=== PATIENT | female | born 1985 | race Caucasian/White ===

== ENCOUNTER 2017-05-18 08:24 | Emergency (ER) | payer OTHER ==
[~2017-05-18] VITALS: Ht 165.1 cm; Wt 104.9 kg
[~2017-05-18 08:24] MED LIST: PEN-VEE K,VEET500 MG PO; TRAMADOL HCL50 MG PO; ULTRAM50 MG PO
[2017-05-18 08:57] LABS: APPEARANCE CLOUDY ((CLEAR)); BILIRUBIN NEGATIVE; BLOOD SMALL; COLOR YELLOW ((YELLOW)); GLUCOSE (STRIP) NEGATIVE; KETONES 20; LEUKOCYTES SMALL; NITRITE NEGATIVE; PROTEIN (STRIP) 30; SPECIFIC GRAVITY 1.019 (1.000-1.030); UROBILINOGEN 0.2 MG/DL (0.2-1.0)
[2017-05-18 09:05] LABS: HEMATOCRIT 47.2 % (36.0-46.0); HEMOGLOBIN 16.5 G/DL (11.9-15.5); PLATELET COUNT 346 K/uL (156-360); RBC DIS.WIDTH-CV 13.2 % (11.8-14.6); RBC DIS.WIDTH-SD 49.4 % (39-53); RED BLOOD COUNT 4.72 M/uL (3.80-5.20); WHITE BLOOD COUNT 19.1 K/uL (4.1-10.2)
[2017-05-18 09:13] LABS: RED BLOOD CELLS 0-5 /HPF (0-5)
[2017-05-18 09:14] LABS: BACTERIA 1+ /HPF; EPITHELIAL CELLS 2+ /HPF; MUCUS NONE SEEN /LPF; UCUL ADDED? YES
[2017-05-18 09:15] LABS: ALBUMIN 4.4 g/dL (3.2-4.8)
[2017-05-18 09:16] LABS: CHLORIDE 105 mEq/L (99-109); POTASSIUM 3.8 mEq/L (3.7-5.4); SODIUM 139 mEq/L (136-147)
[2017-05-18 09:18] LABS: GLUCOSE 130 mg/dL (70-99)
[2017-05-18 09:20] LABS: TOTAL BILIRUBIN 0.5 mg/dL (0.0-1.0)
[2017-05-18 09:21] LABS: ALKALINE PHOSPHATASE 107 IU/L (3-129)
[2017-05-18 09:22] LABS: CREATININE 0.8 mg/dL (0.6-1.3); GFR ESTIMATE (CALCULATED) > 59 mL/min/
[2017-05-18 09:23] LABS: AST (GOT) 71 IU/L (2-34); UREA NITROGEN (BUN) 5 mg/dL (9-23)
[2017-05-18 09:25] LABS: ALT (GPT) 61 IU/L (3-49)
[2017-05-18 09:33] LABS: QUANTITATIVE HCG < 4.0 MIU/ML
[2017-05-18 10:09] LABS: LIPASE 19 U/L (1.0-51.0)
[2017-05-18] MEDS ORDERED: NAPROSYN500 MG PO (11:23)
[2017-05-18] MEDS ORDERED: KEFLEX500 MG PO (11:23)
[2017-05-18] MEDS ORDERED: ZOFRAN ODT4 MG PO (11:23)
[2017-05-18 12:02] VITALS: BP 116/81
== END 2017-05-18 12:23 | disposition home or self-care (01) ==
LOC: EME 08:24
DX: N12 Tubulo-interstitial nephritis, not specified as acute or chronic (principal); F17.200 Nicotine dependence, unspecified, uncomplicated
CPT/HCPCS: 74177; 80053; 81003; 83690; 84702; 85027; 87086; 99281; 99285; J1885; J2405; J7030